=== PATIENT | female | born 1940 | race Caucasian/White ===

== ENCOUNTER → 2018-03-06 | Outpatient (CLI) | payer MEDICARE, OTHER ==
[~2018-03-06] MED LIST: ALEN70 PO; AMOCLA875 PO; ASPI81CH PO; CALCAVITDA PO; CENTRUM SILVER1 EAC2 PO; CEPH500 PO; ESCI20 PO; EVAMIST TOP; EZET10; FENO160 PO; FEXO180; FISH1000 PO; GLUCOSAMINE COMPLEX PO; HYDACE5 PO; LISHYD1012 PO; LISI20; MINIVELLE1 EAC1 TD; MULVITMINF PO; NABU750 PO; NASACORT10.8 ML; NASCOBAL; OMEP40CA12 PO; SIMV20 PO; TRIAOIA; Triglide160 MG PO; VITAMIN D PO; VITAMIN D31000 UNIT PO; Zocor10 MG PO; Zofran Odt4 MG PO
[2018-03-08 16:09] LABS: HPV 16 Negative (Negative); HPV 18 Negative (Negative); HPV OTHER HR TYPES Negative (Negative)
== END | disposition home or self-care (01) ==
LOC: LAB SHORT 20:32 → LAB 20:32
PROVIDERS: Obstetrics & Gynecology Gynecology
DX: Z12.72 Encounter for screening for malignant neoplasm of vagina (principal)
CPT/HCPCS: 87624; G0123

== ENCOUNTER 2019-02-15 08:18 | Day surgery (SDC) | payer MEDICARE, OTHER ==
[~2019-02-15] VITALS: Ht 167.6 cm; Wt 161.8 kg
--- NOTE | 2019-02-15 11:06 | NUR ---
02/15/19 1106 Kandy Guzman S 0901 PT. STARTED COUGHING AT START OF UPPER ENDO. PT. CONTINUED TO COUGH & DEVELOPED STRIDOR SOUNDING RESPIRATIONS. SATS DOWN TO 83% ON 3L/NC, O2 UP TO 5L/NC & JAW THRUST PERFORMED. PER DR. JEAN-BAPTISTE HAVE PT. WAKE UP FROM HER SEDATION TO CLEAR HER THROAT. PT. WAS ALSO SUCTIONED ORALLY FOR SMALL AMT. CLEAR SECRETIONS. STRIDOR BECAME BETTER PT. BECAME MORE AWAKE & THEN PT. WAS GIVEN SMALL DOSES OF PROPOFOL. PT. THEN STARTED COUGHING AGAIN & AGAIN JAW THRUST PERFORMED & PT. ORALLY SUCTIONED. WHEN PT. WOKE UP PT. DENIED ANY SORE THROAT. PT. WAS JUST CLEARING HER THROAT OFF & ON. SATS DID GO UP TO 96-98% ON THE 5L/NC MENTIONED ABOVE.
== END 2019-02-15 10:34 | disposition home or self-care (01) ==
LOC: ORSCSDS 08:18
PROVIDERS: Internal Medicine Gastroenterology
PROC: 0DB58ZX Excision of Esophagus, Via Natural or Artificial Opening Endoscopic, Diagnostic (ICD-10-PCS; principal; 2019-02-15 09:45)
DX: K21.9 Gastro-esophageal reflux disease without esophagitis (principal); K29.70 Gastritis, unspecified, without bleeding; Z98.84 Bariatric surgery status; R12 Heartburn; Z79.899 Other long term (current) drug therapy; G47.30 Sleep apnea, unspecified; E11.9 Type 2 diabetes mellitus without complications; Z79.82 Long term (current) use of aspirin
CPT/HCPCS: 82947; 88305; J0461; J2405; J2704; J7120

== ENCOUNTER 2019-12-11 09:08 | Day surgery (SDC) | payer MEDICARE, OTHER ==
[~2019-12-11] VITALS: Ht 167.6 cm; Wt 77.5 kg
[~2019-12-11 09:08] MED LIST changes: +FISH OIL 1,2001 EAC7 PO; +LOSA25 PO; +MELA3 PO; +MULTIVITAMINS1 EAC3 PO; +TUMERIC PO; +Vitamin D2000 UNIT PO
--- NOTE | 2019-12-11 10:00 | NUR ---
12/11/19 1000 STORMY STALLWORTH ONE ATTEMPT BY LIT UNSICCESSFUL ONE SUCCESSFUL BY RN ON RIGHT HAND PT TOW
== END 2019-12-11 11:23 | disposition home or self-care (01) ==
LOC: ORSCSDS 09:08
PROVIDERS: Internal Medicine Gastroenterology
PROC: 0DJD8ZZ Inspection of Lower Intestinal Tract, Via Natural or Artificial Opening Endoscopic (ICD-10-PCS; principal; 2019-12-11 10:30)
DX: Z12.11 Encounter for screening for malignant neoplasm of colon (principal); Z86.010 Personal history of colon polyps; K57.30 Diverticulosis of large intestine without perforation or abscess without bleeding; I10 Essential (primary) hypertension; Z98.84 Bariatric surgery status; E11.9 Type 2 diabetes mellitus without complications; G47.30 Sleep apnea, unspecified; K21.9 Gastro-esophageal reflux disease without esophagitis; Z86.73 Personal history of transient ischemic attack (TIA), and cerebral infarction without residual deficits; E78.5 Hyperlipidemia, unspecified; Z79.82 Long term (current) use of aspirin; Z79.899 Other long term (current) drug therapy
CPT/HCPCS: 82947; J2704; J7120

== ENCOUNTER → 2024-08-28 | Outpatient (CLI) | payer MEDICARE, OTHER ==
[~2024-08-28] MED LIST changes: +Percocet 5-3251 EACH PO
[2024-08-28 15:19] LABS: Source, Urine Clean Catch
[2024-08-28 17:45] LABS: Bilirubin, Urine Neg (Neg); Color, Urine Yellow (P-Yellow); Glucose Qualitative, Urine Neg (Neg); Ketones, Urine Neg (Neg); Leukocyte Esterase, Urine 3+ (Neg); Protein, Urine 1+ (Neg); Specific Gravity, Urine 1.010 (1.003-1.022); Urobilinogen, Urine NORM (Normal)
== END ==
LOC: LAB 15:17 → LAB SHORT 15:17
PROVIDERS: Obstetrics & Gynecology
DX: R39.15 Urgency of urination (principal)
CPT/HCPCS: 81001; 87086